=== PATIENT | male | born 1955 | race African-American/Black ===

== ENCOUNTER 2016-05-23 05:09 | Emergency (ER) | payer SELFPAY ==
[2016-05-23] MEDS ORDERED: ASPIRIN 81 MG TABLET, CHEWABLE PO ONE (05:18)
[2016-05-23] MEDS ORDERED: ACETAMINOPHEN 325 MG TABLET PO ONE (05:19)
[2016-05-23] MEDS ORDERED: ASPIRIN 81 MG TABLET, CHEWABLE ONE (05:22)
[2016-05-23] MEDS ORDERED: ACETAMINOPHEN 325 MG TABLET ONE (05:23)
[2016-05-23 05:54] LABS: ABSOLUTE EOSINOPHILS # (AUTO) 0.1 10^3/uL (0.0-0.6); ABSOLUTE LYMPHOCYTES (AUTO) 0.6 10^3/uL (0.5-4.7); ABSOLUTE MONOCYTES (AUTO) 0.6 10^3/uL (0.1-1.4); BASOPHILS % (AUTO) 0.4 % (0-2); EOSINOPHILS % (AUTO) 1.1 % (0-6); HEMATOCRIT 38.2 % (37.9-51.0); HEMOGLOBIN 12.6 g/dL (13.5-17.0); HGB HCT DIFFERENCE -0.4; LYMPHOCYTES % (AUTO) 6.1 % (13-45); MEAN CORPUSCULAR HEMOGLOBIN 28.8 pg (27.0-33.4); MEAN CORPUSCULAR HGB CONC 33.1 g/dL (32.0-36.0); MEAN CORPUSCULAR VOLUME 87 fl (80-97); RED BLOOD COUNT 4.39 10^6/uL (4.35-5.55); SEGMENTED NEUTROPHILS % (AUTO) 86.4 % (42-78); WHITE BLOOD COUNT 10.4 10^3/uL (4.0-10.5)
[2016-05-23 06:02] LABS: ALANINE AMINOTRANSFERASE 30 U/L (21-72); ALBUMIN 4.4 g/dL (3.5-5.0); ALKALINE PHOSPHATASE 78 U/L (38-126); ANION GAP 12 (5-19); ASPARTATE AMINO TRANSFERASE 30 U/L (17-59); BILIRUBIN,TOTAL 0.8 mg/dL (0.2-1.3); BLOOD UREA NITROGEN 23 mg/dL (7-20); CALCIUM 9.5 mg/dL (8.4-10.2); CARBON DIOXIDE 25 mmol/L (22-30); CHLORIDE 101 mmol/L (98-107); CREATINE KINASE 249 U/L (55-170); GLUCOSE 116 mg/dL (75-110); POTASSIUM 3.8 mmol/L (3.6-5.0); SODIUM 137.5 mmol/L (137-145); TOTAL PROTEIN 7.8 g/dL (6.3-8.2)
[2016-05-23 06:14] LABS: CREATINE KINASE MB 0.75 ng/mL (<4.55); TROPONIN I 0.014 ng/mL
[2016-05-23] MEDS ORDERED: IPRATROPIUM/ALBUTEROL 0.5-2.5 MG/3 ML AMPUL NEB ONE (09:24)
[2016-05-23] MEDS ORDERED: HYDROCODONE/ACETAMINOPHEN 5-325 MG TABLET PO ONE (09:24)
[2016-05-23] MEDS ORDERED: PREDNISONE 20 MG TABLET PO ONE (09:24)
--- NOTE | 2016-05-23 09:26 | ER Document Report ---
ED General - General Time seen by provider: 09:21 Mode of Arrival: Ambulatory Information source: Patient TRAVEL OUTSIDE OF THE [place] IN LAST 30 DAYS: No - HPI Onset: Other - see HPI notes Associated symptoms: Body/muscle aches, Chills, Nonproductive cough, Fever, Rhinnorhea <JAZMYN SUNSHINE - Last Filed: 05/23/16 10:32> <CAROLINE DUNN - Last Filed: 05/23/16 12:46> - General Chief Complaint: Chest Pain Stated Complaint: COUGH Notes: Patient is a 61-year-old male presenting to the emergency department with complaints of flulike symptoms. Patient complains of a nonproductive cough, fever, chills, congestion, and body aches. Patient did not receive a flu vaccination this year. Patient has been exposed to someone at home that has the flu. Patient states that he quit smoking in 1980 but occasionally drinks alcohol. Patient denies any medical history that is records indicate that the patient has been hypertensive multiple times in the emergency department. Patient had a very high blood pressure one year ago and is also hypertensive today. (JAZMYN SUNSHINE) - Related Data Allergies/Adverse Reactions: No Known Allergies Allergy (Unverified 05/23/16 05:16) Past Medical History - General Information source: Patient - Social History Smoking Status: Former Smoker Frequency of alcohol use: Heavy Drug Abuse: None Family History: None Patient has suicidal ideation: No Patient has homicidal ideation: No - Past Medical History Cardiac Medical History: Reports: Hx Hypertension Surgical Hx: Negative - Immunizations Immunizations up to date: Yes Hx Diphtheria, Pertussis, Tetanus Vaccination: Yes - not within 5 years <JAZMYN SUNSHINE - Last Filed: 05/23/16 10:32> Review of Systems - Review of Systems Constitutional: See HPI, Chills, Fever, Malaise EENT: See HPI, Nose congestion Cardiovascular: No symptoms reported Respiratory: See HPI, Cough. denies: Sputum Gastrointestinal: No symptoms reported Genitourinary: No symptoms reported Male Genitourinary: No symptoms reported Musculoskeletal: See HPI Skin: No symptoms reported Hematologic/Lymphatic: No symptoms reported Neurological/Psychological: No symptoms reported -: Yes All other systems reviewed and negative <JAZMYN SUNSHINE - Last Filed: 05/23/16 10:32> Physical Exam - Vital signs Interpretation: Hypertensive, Febrile - General General appearance: Appears well, Alert In distress: Mild - HEENT Head: Normocephalic, Atraumatic Eyes: Normal Pupils: PERRL Mucous membranes: Moist - Respiratory Respiratory status: No respiratory distress Chest status: Nontender Breath sounds: Normal, Nonproductive cough, Rales - left side, Rhonchi - left side and mildly in the right side, Wheezing - left side Chest palpation: Normal - Cardiovascular Rhythm: Regular Heart sounds: Normal auscultation Murmur: No - Abdominal Inspection: Normal Distension: No distension Bowel sounds: Normal Tenderness: Nontender Organomegaly: No organomegaly - Back Back: Normal, Nontender - Extremities General upper extremity: Normal inspection, Normal ROM, Normal strength General lower extremity: Normal inspection, Normal ROM, Normal strength - Neurological Neuro grossly intact: Yes Cognition: Normal Orientation: AAOx4 [place] Coma Scale Eye Opening: Spontaneous [place] Coma Scale Verbal: Oriented [place] Coma Scale Motor: Obeys Commands [place] Coma Scale Total: 15 Speech: Normal - Psychological Associated symptoms: Normal affect, Normal mood - Skin Skin Temperature: Warm Skin Moisture: Dry <JAZMYN SUNSHINE - Last Filed: 05/23/16 10:32> <CAROLINE DUNN - Last Filed: 05/23/16 12:46> - Vital signs Vitals: Pulse Resp BP Pulse Ox 119 H 18 209/114 H 96 05/23/16 05:17 05/23/16 05:17 05/23/16 05:17 05/23/16 05:17 (JAZMYN SUNSHINE) (CAROLINE DUNN) Course - Laboratory Result Diagrams: 05/23/16 05:35 05/23/16 05:35 <JAZMYN SUNSHINE - Last Filed: 05/23/16 10:32> - Laboratory Result Diagrams: 05/23/16 05:35 05/23/16 05:35 <CAROLINE DUNN - Last Filed: 05/23/16 12:46> - Re-evaluation Re-evalutation: 05/23/16 12:46 Review of the patient's prior visit in 2014 shows this quite elevated blood pressure is a chronic problem, he was not told about the blood pressure and reviewing the chart on his prior visit. (CAROLINE DUNN) - Vital Signs Vital signs: Temp Pulse Resp BP Pulse Ox 102.9 F H 117 H 24 H 168/103 H 99 05/23/16 05:18 05/23/16 05:18 05/23/16 11:01 05/23/16 11:01 05/23/16 11:01 (JAZMYN SUNSHINE) (CAROLINE DUNN) - Laboratory Laboratory results interpreted by me: 05/23/16 05/23/16 05:35 05:35 Hgb 12.6 L Seg Neutrophils % 86.4 H Lymphocytes % 6.1 L Absolute Neutrophils 9.0 H BUN 23 H Creatinine 1.60 H Est GFR ( Amer) 53 L Est GFR (Non-Af Amer) 44 L Glucose 116 H Creatine Kinase 249 H (JAZMYN SUNSHINE) (CAROLINE DUNN) Discharge <JAZMYN SUNSHINE - Last Filed: 05/23/16 10:32> <CAROLINE DUNN - Last Filed: 05/23/16 12:46> - Discharge Clinical Impression: Viral URI with cough, Bronchitis with bronchospasm Fever Qualifiers: Fever type: unspecified Qualified Code(s): R50.9 - Fever, unspecified High blood pressure Qualifiers: Hypertension type: essential hypertension Qualified Code(s): I10 - Essential ( primary) hypertension Condition: Stable Disposition: HOME, SELF-CARE Additional Instructions: Bronchitis with Bronchospasm (Wheezing)/FLU: You have bronchitis with bronchospasm (wheezing) caused by the FLU. Sometimes people develop wheezing with a chest cold, especially if they have a prior smoking history. This occurs either because of an underlying tendency toward asthma or because the virus itself irritates the bronchial tubes. This irritation causes cough, shortness of breath, and wheezing. Emergency treatment of bronchospasm may include adrenaline shots or bronchodilator aerosol. Rest and get plenty of fluids. At home, we'll treat you with a bronchodilator inhaler. Corticosteroids may be required for some patients. Until you recover, avoid chemical fumes, dusts, pollens, and exercising in very cold or dry air. If you smoke, stop now! Most cases of bronchitis get better without antibiotics. We prescribe antibiotics when we believe bacteria are damaging your airways, or if there's high risk the bronchitis will worsen into pneumonia. Increase your fluid intake. A cool mist humidifier may make your lungs more comfortable. An expectorant (cough medicine that loosens phlegm) can help. Repeated episodes of bronchitis and bronchospasm may result in lung damage -- for example, chronic bronchitis, recurrent pneumonias, or emphysema. If you develop a fever, increased wheezing, chest pain, or severe shortness of breath, you should contact the doctor immediately. High Blood Pressure, Requiring Treatment: Your blood pressure is high. This is called "hypertension." You need treatment of your blood pressure. Pre-hypertension/Hypertension: The patient has been informed that they may have pre-hypertension or Hypertension based on a blood pressure reading in the emergency department. I recommend that the patient call the primary care provider listed on their dischargge instructions or a physician of their choice this wee to arrage follow up for further evaluation of possible pre- hypertension or Hypertension. If left untreated, high blood pressure greatly increases your risk of heart attack and stroke. Please don't ignore this problem. If you have blood pressure medicine but aren't using it regularly, start taking it again. Some simple things you can do to help are: Get some aerobic exercise for at least 20 minutes on a daily basis. (See your doctor before beginning any new exercise program.) Eat a low-fat diet. Lose excess weight. Avoid salty foods and avoid adding salt to any of the foods you eat. Avoid diet pills, decongestants, "energizing" herbs, and other medicines that elevate blood pressure. There are many different medicines that treat blood pressure. If your medication causes unpleasant side effects, call your doctor. There are others you can try. Treating hypertension is a life-long investment in your health. TAKE TYLENOL EVERY FOUR HOURS FOR FEVER NEEDED. START THE PREDNISONE TOMORROW. START THE LISINOPRIL FOR HIGH BLOOD PRESSURE TONIGHT. USE THE INHALER 2 PUFFS EVERY FOUR HOURS FOR WHEEZING NEEDED. DRINK PLENTY OF FLUIDS. REST. FOLLOW UP WITH A LOCAL MEDICAL DOCTOR TO MANAGE YOUR BLOOD PRESSURE. RETURN TO THE EMERGENCY ROOM IF ANY NEW OR WORSENING SYMPTOMS. Prescriptions: Lisinopril 20 mg PO QHS #30 tablet Prednisone [Deltasone 10 mg Tablet] 10 mg PO ASDIR PRN #21 tablet PRN Reason: Michael Attestation: 05/23/16 12:46 I personally performed the services described in the documentation, reviewed and edited the documentation which was dictated to the scribe in my presence, and it accurately records my words and actions. (CAROLINE DUNN) Scribe Documentation - Scribe Written by Scribe:: Jazmyn Sunshine 05/23/16 10:40 acting as scribe for :: Sabina <JAZMYN SUNSHINE - Last Filed: 05/23/16 10:32>
[2016-05-23] MEDS ORDERED: CLONIDINE HCL 0.2 MG TABLET PO ONE (10:37)
--- NOTE | 2016-05-23 11:59 | EKG REPORT ---
SEVERITY:- ABNORMAL ECG - SINUS TACHYCARDIA ATRIAL PREMATURE COMPLEX PROBABLE LEFT ATRIAL ABNORMALITY RIGHT BUNDLE BRANCH BLOCK CONSIDER LEFT VENTRICULAR HYPERTROPHY : Confirmed by: Cecilia Lobato MD 23-May-2016 11:57:57
[2016-05-23] MEDS ORDERED: ALBUTEROL SULFATE HFA (90 MCG/PUFF) 8 GM MDI (1 MDI/ER DISP) IH ONE (12:32)
[2016-05-23 13:07] VITALS: BP 140/90
== END 2016-05-23 13:14 | disposition home or self-care (01) ==
LOC: ER 05:09
DX: J06.9 Acute upper respiratory infection, unspecified (principal); B97.89 Other viral agents as the cause of diseases classified elsewhere; J40 Bronchitis, not specified as acute or chronic; R05 Cough; R50.9 Fever, unspecified; J34.89 Other specified disorders of nose and nasal sinuses; M79.1 Myalgia; I10 Essential (primary) hypertension; R53.81 Other malaise; R06.2 Wheezing; R09.81 Nasal congestion; Z20.828 Contact with and (suspected) exposure to other viral communicable diseases; Z87.891 Personal history of nicotine dependence
CPT/HCPCS: 93005; 94640; 99285; 36415; 82553; 82550; 85025; 80053; 84484; 87804; 71010; 93010; J7512; J3490; J7620

== ENCOUNTER → 2016-07-15 | Outpatient (CLI) | payer SELFPAY ==
[2016-07-15 11:27] LABS: ANION GAP 12 (5-19); BLOOD UREA NITROGEN 23 mg/dL (7-20); CALCIUM 9.4 mg/dL (8.4-10.2); CARBON DIOXIDE 28 mmol/L (22-30); CHLORIDE 106 mmol/L (98-107); CHOLESTEROL 158.92 mg/dL (0-200); CREATININE RESULT 1.23 mg/dL (0.52-1.25); Direct HDL 74 mg/dL (>40); GLUCOSE 104 mg/dL (75-110); POTASSIUM 4.2 mmol/L (3.6-5.0); TRIGLYCERIDES 49 mg/dL (<150)
[2016-07-15 11:38] LABS: DIRECT LDL 56 mg/dL (<100)
== END ==
LOC: OD 09:52
PROVIDERS: ATTEND Internal Medicine Geriatric Medicine
DX: I10 Essential (primary) hypertension (principal)
CPT/HCPCS: 36415; 80048; 80061

== ENCOUNTER → 2017-04-23 | Outpatient (CLI) | payer SELFPAY ==
[2017-04-23 15:22] LABS: ALANINE AMINOTRANSFERASE 16 U/L (21-72); ALBUMIN 4.2 g/dL (3.5-5.0); ALKALINE PHOSPHATASE 60 U/L (38-126); ANION GAP 9 (5-19); ASPARTATE AMINO TRANSFERASE 19 U/L (17-59); BILIRUBIN,DIRECT 0.2 mg/dL (0.0-0.4); BILIRUBIN,TOTAL 0.5 mg/dL (0.2-1.3); BLOOD UREA NITROGEN 21 mg/dL (7-20); CALCIUM 10.1 mg/dL (8.4-10.2); CARBON DIOXIDE 29 mmol/L (22-30); CHLORIDE 102 mmol/L (98-107); GLUCOSE 91 mg/dL (75-110); POTASSIUM 4.6 mmol/L (3.6-5.0); SODIUM 140.2 mmol/L (137-145); TOTAL PROTEIN 7.5 g/dL (6.3-8.2)
[2017-04-25 07:07] LABS: TESTOSTERONE FREE (DIRECT) 3.7 pg/mL (6.6-18.1)
== END ==
LOC: OD 14:31
PROVIDERS: ATTEND Internal Medicine Geriatric Medicine
DX: I10 Essential (primary) hypertension (principal); N52.9 Male erectile dysfunction, unspecified
CPT/HCPCS: 36415; 80053; 84402; 84403

== ENCOUNTER → 2018-01-25 | Outpatient (CLI) | payer SELFPAY ==
[2018-01-25 11:43] LABS: ABSOLUTE EOSINOPHILS # (AUTO) 0.3 10^3/uL (0.0-0.6); ABSOLUTE LYMPHOCYTES (AUTO) 1.5 10^3/uL (0.5-4.7); ABSOLUTE MONOCYTES (AUTO) 0.6 10^3/uL (0.1-1.4); ABSOLUTE NEUT (AUTO) 4.3 10^3/uL (1.7-8.2); BASOPHILS % (AUTO) 0.4 % (0-2); EOSINOPHILS % (AUTO) 4.3 % (0-6); HEMATOCRIT 34.8 % (37.9-51.0); LYMPHOCYTES % (AUTO) 22.6 % (13-45); MEAN CORPUSCULAR HEMOGLOBIN 29.4 pg (27.0-33.4); MEAN CORPUSCULAR HGB CONC 34.4 g/dL (32.0-36.0); MEAN CORPUSCULAR VOLUME 86 fl (80-97); MONOCYTES % (AUTO) 8.6 % (3-13); PLATELET COUNT 327 10^3/uL (150-450); RED BLOOD COUNT 4.07 10^6/uL (4.35-5.55); RED CELL DISTRIBUTION WIDTH 14.3 % (11.5-14.0); SEGMENTED NEUTROPHILS % (AUTO) 64.1 % (42-78); TOTAL CELLS COUNTED % (AUTO) 100 %; WHITE BLOOD COUNT 6.6 10^3/uL (4.0-10.5)
[2018-01-25 12:14] LABS: ALANINE AMINOTRANSFERASE 17 U/L (21-72); ALBUMIN 3.9 g/dL (3.5-5.0); ALKALINE PHOSPHATASE 79 U/L (38-126); ANION GAP 12 (5-19); ASPARTATE AMINO TRANSFERASE 22 U/L (17-59); BILIRUBIN,DIRECT 0.2 mg/dL (0.0-0.4); BILIRUBIN,TOTAL 0.6 mg/dL (0.2-1.3); BLOOD UREA NITROGEN 23 mg/dL (7-20); CALCIUM 9.5 mg/dL (8.4-10.2); CARBON DIOXIDE 28 mmol/L (22-30); CHLORIDE 102 mmol/L (98-107); GLUCOSE 99 mg/dL (75-110); POTASSIUM 4.3 mmol/L (3.6-5.0); SODIUM 141.6 mmol/L (137-145); TOTAL PROTEIN 7.4 g/dL (6.3-8.2)
== END ==
LOC: OD 11:10
PROVIDERS: ATTEND Internal Medicine Geriatric Medicine
DX: I10 Essential (primary) hypertension (principal)
CPT/HCPCS: 36415; 80053; 85025